=== PATIENT | male | born 1955 | race Caucasian/White ===

== ENCOUNTER 2016-06-23 10:10 | Emergency (ER) | payer MEDICARE, OTHER ==
[2016-06-23] MEDS ORDERED: MORPHINE SULFATE 5 MG/ML PFS IVP ONE (10:46)
[2016-06-23] MEDS ORDERED: ONDANSETRON HCL IV 4 MG/2 ML VIAL IVP ONE (10:46)
--- NOTE | 2016-06-23 10:51 | Emergency Department Record ---
History of Present Illness - General Chief Complaint: Hypertension Stated Complaint: HIGH BP AND LOWER RT SIDE PAIN Time Seen by Provider: 06/23/16 10:45 Source: Patient Mode of Arrival: Ambulatory Limitations: No limitations - History of Present Illness Initial Comments: 60 yo male presents to ED with a CC of RLQ abdominal pain symptoms progressively worsening for the past 5-6 days. Patient denies fevers, chills, nausea, or vomiting symptoms but does report chronic diarrhea related to colitis. Patient is s/p kemar and hernia repair on the right. Patient also reports a history of HTN, CAD, and DM. MD Complaint: Other Onset/Timin -: Days(s) Timing: Unsure Description: Other History of Same: No History of Trauma: No Severity: Moderate Improves With: Nothing Worsens With: Nothing Associated Symptoms: Denies other symptoms - Wes Coma Scale Eye Response: (4) Open spontaneously Motor Response: (6) Obeys commands Verbal Response: (5) Oriented Mcintosh Total: 15 - Related Data Home Medications Medication Instructions Recorded Confirmed Last Taken Aspirin [Aspirin EC] 81 mg PO BID 04/17/14 06/23/16 06/23/16 Atorvastatin Calcium [Lipitor] 40 mg PO DAILY 04/17/14 06/23/16 06/23/16 Glipizide [Glucotrol] 5 mg PO BID 04/17/14 06/23/16 06/23/16 Lisinopril/Hydrochlorothiazide 1 each PO DAILY 04/17/14 04/17/14 06/23/16 [Zestoretic 20-12.5 mg Tablet] Mesalamine [Delzicol] 800 mg PO TID 04/17/14 04/17/14 06/23/16 Metoprolol Tartrate [Lopressor] 25 mg PO BID 04/17/14 04/17/14 06/23/16 Amlodipine Besylate [Norvasc] 5 mg PO DAILY 06/23/16 06/23/16 06/23/16 Citalopram Hydrobromide 06/23/16 Unknown [Citalopram HBr] Citalopram Hydrobromide 20 mg PO DAILY 06/23/16 06/23/16 06/23/16 [Citalopram HBr] Gabapentin [Gabapentin] 200 mg PO BID 06/23/16 06/23/16 06/23/16 Metformin HCl [Metformin HCl ER] 4 tab PO QHS 06/23/16 06/23/16 06/22/16 Omeprazole [Prilosec] 20 mg PO DAILY 06/23/16 06/23/16 06/23/16 Potassium Chloride [Klor-Con M20] 20 meq PO DAILY 06/23/16 06/23/16 06/23/16 Previous Rx's Medication Instructions Recorded Hydrocodone/Acetaminophen [Houghton 1 tab PO Q6H PRN #15 tab 06/23/16 7.5mg/325mg] Allergies Allergy/AdvReac Type Severity Reaction Status Date / Time No Known Drug Allergies Allergy Verified 06/23/16 10:15 Travel Screening - Travel/Exposure Within Last 30 Days Have you traveled within the last 30 days?: No - Travel/Exposure Within Last Year Have you traveled outside the [place] in the last year?: No - Additonal Travel Details Have you been exposed to anyone with a communicable illness?: No - Travel Symptoms Symptom Screening: None Review of Systems Constitutional: Denies: Chills, Fever, Malaise, Night sweats Eyes: Denies: Eye discharge, Eye pain ENT: Denies: Congestion, Ear pain, Epistaxis Respiratory: Denies: Cough, Dyspnea Cardiovascular: Denies: Chest pain, Dyspnea on exertion Endocrine: Denies: Fatigue, Heat or cold intolerance Gastrointestinal: Reports: Abdominal pain, Diarrhea (chronic per patient). Denies: Nausea, Vomiting Genitourinary: Denies: Hematuria, Incontinence, Retention Musculoskeletal: Denies: Arthralgia, Back pain, Gout, Joint swelling Skin: Denies: Bruising, Change in color Neurological: Denies: Abnormal gait, Confusion, Headache, Seizure Psychiatric: Denies: Anxiety Hematological/Lymphatic: Denies: Anemia, Blood Clots Past Medical History - SOCIAL HISTORY Smoking Status: Current every day smoker Alcohol Use: Rare Drug Use: None - RESPIRATORY Hx Respiratory Disorders: No - CARDIOVASCULAR Hx Cardio Disorders: Yes Hx Abnormal EKG: Yes Hx Cardiac Cath: Yes Hx Chest Pain: Yes Hx CHF: Yes (pt thinks) Hx Heart Attack: Yes Hx Hypertension: Yes - NEURO Hx Neuro Disorders: Yes Hx Dizziness: Yes Hx Headaches: Yes Hx TIA: Yes (2008 and 2009) - GI Hx GI Disorders: Yes Comment:: colitis - Hx Genitourinary Disorders: Yes Comment:: stones - ENDOCRINE Hx Endocrine Disorders: Yes Hx Diabetes: Yes - MUSCULOSKELETAL Hx Musculoskeletal Disorders: Yes Hx Arthritis: Yes Hx Back Injury: Yes - PSYCH Hx Psych Problems: Yes Hx Depression: Yes - HEMATOLOGY/ONCOLOGY Hx Hematology/Oncology Disorders: Yes Hx Cancer: Yes (stomach cancer) Hx Chemotherapy: Yes Hx Radiation Therapy: Yes Family Medical History Any Significant Family History?: Yes Hx Alcohol Use: Brother/Sister Hx Anxiety: Brother/Sister Hx Cancer: Father, Mother Hx Dementia: Grandparents Hx Depression: Brother/Sister Hx Diabetes: Father, Mother Hx Heart Disease: Grandparents Physical Exam - General General Appearance: Alert, Oriented x3, Cooperative, Moderate distress Limitations: No limitations - Head Head exam: Atraumatic, Normocephalic, Normal inspection Head exam detail: negative: Abrasion, Contusion, Randall's sign, General tenderness, Hematoma, Laceration - Eye Eye exam: Normal appearance. negative: Conjunctival injection, Periorbital swelling, Periorbital tenderness, Scleral icterus - ENT Ear exam: negative: Auricular hematoma, Auricular trauma Nasal Exam: negative: Active bleeding, Discharge, Dried blood, Foreign body Mouth exam: negative: Drooling, Laceration, Muffled voice, Tongue elevation - Neck Neck exam: Normal inspection. negative: Meningismus, Tenderness - Respiratory Respiratory exam: Normal lung sounds bilaterally. negative: Respiratory distress, Rhonchi, Stridor, Wheezes - Cardiovascular Cardiovascular Exam: Regular rate, Normal rhythm, Normal heart sounds - GI/Abdominal GI/Abdominal exam: Soft, Tenderness (TTP RLQ on examination, no rebound or guarding present). negative: Pulsatile mass, Rebound, Rigid - Rectal Rectal exam: Deferred - exam: Deferred - Extremities Extremities exam: Normal inspection. negative: Calf tenderness, Pedal edema, Tenderness - Back Back exam: Denies: CVA tenderness (R), CVA tenderness (L) - Neurological Neurological exam: Alert, Normal gait, Oriented X3 - Psychiatric Psychiatric exam: Normal affect, Normal mood - Skin Skin exam: Normal color. negative: Abrasion Type of lesion: negative: abrasion Course Vital Signs 06/23/16 06/23/16 10:29 10:40 Temperature 97.8 F Pulse Rate 106 H Pulse Rate [ 98 H Pulse Ox Probe] Respiratory 20 20 Rate Blood Pressure 180/115 Blood Pressure 167/106 [Left] Pulse Ox 97 - Reevaluation(s) Reevaluation #1: 06/23/16 11:23 Labs reviewed, Glucose 209, otherwise labs are grossly unremarkable for an acute process. Awaiting CT imaging for further evaluation. Reevaluation #2: 06/23/16 12:32 CT Abdomen and Pelvis: Hydrocoeles bilaterally, 1.7 cm direct hernia right with omental fat present, otherwise negative. Reevaluation #3: 06/23/16 12:43 Patient was reassessed and updated on all results, reports that his pain symptoms are down to 2/10. Patient appears stable for discharge at this time with referral to [facility] for hernia evaluation as well as analgesia for his pain symptoms. Patient agrees with plan as discussed. Medical Decision Making - Lab Data Result diagrams: 06/23/16 10:55 06/23/16 10:55 Disposition Disposition: Discharge Clinical Impression: Direct hernia Disposition: Home, Self-Care Condition: (2) Stable Instructions: Inguinal Hernia (ED) Additional Instructions: Return to ED if your symptoms worsen or if you have any concerns Houghton as directed. Follow-up in the [facility] this week. Prescriptions: Hydrocodone/Acetaminophen [[place] 7.5mg/325mg] 1 tab PO Q6H PRN #15 tab PRN Reason: Pain - General Referrals: Axel Killian [DOCTOR OF OSTEOPATH] - [facility] [Provider Group] Forms: Patient Portal Access Time of Disposition: 12:46
[2016-06-23] MEDS ORDERED: 0.9 % SODIUM CHLORIDE 1000ML 1,000 ML IV SCH (11:00)
[2016-06-23 11:01] LABS: BASO % 0.4 % (0-6); EOS % 1.2 % (0-6); HEMATOCRIT 46.8 % (42.0-52.0); HEMOGLOBIN 15.7 gm/dl (14.0-18.0); LYMPH % 21.3 % (16-45); MEAN CELL VOLUME 89.1 fl (81-97); MEAN CORPUSCULAR HEMOGLOBIN 29.9 pg (27-33); MEAN CORPUSCULAR HGB CONC 33.5 g/dl (32-36); MEAN PLATELET VOLUME 10.2 fl (7.4-10.4); MONO % 9.1 % (0-9); PLATELET COUNT 253 K/uL (130-400); RED BLOOD COUNT 5.25 M/uL (4.40-5.70); RED CELL DISTRIBUTION WIDTH 12.9 % (11.5-14.5); WHITE BLOOD COUNT W/O DIFF 9.1 K/uL (4.2-12.2)
[2016-06-23 11:14] LABS: ALB/GLOB RATIO 1.8 (1.1-1.8); ALBUMIN 4.5 gm/dL (3.5-5.0); ALKALINE PHOSPHATASE 76 U/L (38-126); ALT/SGPT 33 U/L (21-72); ANION GAP 15.7 (7-16); AST/SGOT 20 U/L (17-59); BILIRUBIN,TOTAL 0.49 mg/dL (0.2-1.3); BLOOD UREA NITROGEN 10 mg/dL (9-20); CARBON DIOXIDE 24.3 mmol/L (22-30); CREATININE 1.1 mg/dL (0.66-1.25); EST GLOMERULAR FILTRATION RATE > 60 ml/min; GLUCOSE,RANDOM 209 mg/dL (70-110); LIPASE 38 U/L (23-300)
[2016-06-23 12:16] LABS: URINE APPEARANCE CLEAR; URINE BILIRUBIN NEGATIVE (NEGATIVE); URINE BLOOD NEGATIVE (NEGATIVE); URINE COLOR YELLOW; URINE KETONE NEGATIVE (NEGATIVE); URINE LEUKOCYTE ESTERASE NEGATIVE (NEGATIVE); URINE NITRITE NEGATIVE (NEGATIVE); URINE PROTEIN NEGATIVE (NEGATIVE); URINE UROBILINOGEN 0.2 E.U./dL (0.20 - 1.00)
--- NOTE | 2016-06-26 14:52 | CT SCAN REPORT ---
EXAM: CT SCAN OF THE ABDOMEN AND PELVIS WITH CONTRAST HISTORY: ACUTE RIGHT SIDED ABDOMINAL PAIN. TECHNIQUE: Serial axial CT scan of the abdomen and pelvis was performed at 3.75 mm intervals from the dome of the diaphragm down to the pubic symphysis following the intravenous administration of 100 ml of Omnipaque 300 contrast. No comparison studies are available. FINDINGS: The lung windows of the lung bases demonstrate no CT evidence of a focal infiltrate or pleural effusion. The visualized heart size and contour is within normal limits. The liver demonstrates mild diffuse fatty infiltration. Otherwise the size and contour of the liver is within normal limits. No suspicious focal hepatic mass lesions are identified. The spleen and bilateral adrenal glands are unremarkable. Punctate calcification of the pancreatic head may represent the result of chronic pancreatitis. Clinical correlation is recommended. The gallbladder is surgically absent. The bilateral kidneys demonstrate no CT evidence of hydronephrosis or hydroureter. A simple cyst is noted within the superior pole of the right kidney. The contour, caliber, and flow within the abdominal aorta is noted within normal limits. Moderate calcified atherosclerotic disease is noted at the distal infrarenal abdominal aorta. There is no CT evidence of retroperitoneal, pelvic, or inguinal lymphadenopathy. The bowel gas pattern is nonspecific and nonobstructive. The appendix is clearly visualized and there is no CT evidence of appendicitis. There is no CT evidence of free intraperitoneal fluid or free intraperitoneal air. The urinary bladder is unremarkable. The prostate is unremarkable. Of note, the patient has prominent bilateral scrotal hydroceles. Bone windows demonstrate no CT evidence of a fracture or dislocation of the visualized osseous structures of the abdomen or pelvis. Postoperative changes of the lower lumbar spine are identified. Within the right inguinal region there is a 1.7 cm direct right inguinal hernia. There is herniated fat within this area. IMPRESSION: 1. LARGE BILATERAL SCROTAL HYDROCELES. 2. 1.7 CM RIGHT DIRECT INGUINAL HERNIA. THERE IS HERNIATED FAT WITHIN THIS REGION. 3. NO CT EVIDENCE OF AN ACUTE INTRAABDOMINAL PROCESS. JOB NUMBER: [id number] MTDD
== END 2016-06-23 13:00 | disposition home or self-care (01) ==
LOC: ER 10:10
DX: K40.90 Unilateral inguinal hernia, without obstruction or gangrene, not specified as recurrent (principal); R10.31 Right lower quadrant pain; I10 Essential (primary) hypertension; I25.10 Atherosclerotic heart disease of native coronary artery without angina pectoris; I25.2 Old myocardial infarction; E11.9 Type 2 diabetes mellitus without complications; F17.200 Nicotine dependence, unspecified, uncomplicated; Z79.84 Long term (current) use of oral hypoglycemic drugs
CPT/HCPCS: 99284 ×2; 96374; 96375; 83690; 85025; 80053; 81003; 74177; Q9967; J2405; J2270; J7030

== ENCOUNTER 2016-07-14 09:18 | Day surgery (SDC) | payer MEDICARE, OTHER ==
[~2016-07-14 09:18] MED LIST: ACETAMINOPHEN 1000MG/100 ML PREMIX IV ONE; CEFAZOLIN 1 Gram 50 ML IVPB ONE; FAMOTIDINE 20MG TABLET PO ONE; MECLIZINE 25 MG TABLET PO ONE; METOCLOPRAMIDE 10 MG TABLET PO ONE
[2016-07-14 09:36] LABS: BASO % 0.3 % (0-6); EOS % 1.2 % (0-6); GRAN % 72.5 % (47-80); HEMATOCRIT 45.4 % (42.0-52.0); HEMOGLOBIN 15.4 gm/dl (14.0-18.0); LYMPH % 17.7 % (16-45); MEAN CELL VOLUME 88.5 fl (81-97); MEAN CORPUSCULAR HGB CONC 33.9 g/dl (32-36); MONO % 8.3 % (0-9); PLATELET COUNT 261 K/uL (130-400); RED BLOOD COUNT 5.13 M/uL (4.40-5.70); RED CELL DISTRIBUTION WIDTH 12.7 % (11.5-14.5); WHITE BLOOD COUNT W/O DIFF 11.8 K/uL (4.2-12.2)
[2016-07-14 09:50] LABS: BLOOD UREA NITROGEN 13 mg/dL (9-20); CREATININE 1.2 mg/dL (0.66-1.25); EST GLOMERULAR FILTRATION RATE > 60 ml/min; GLUCOSE,RANDOM 155 mg/dL (70-110)
[2016-07-14] MEDS ORDERED: BUPIVACAINE 0.25% W/EPI MPF 30ML VIAL IVP ONE (15:12)
[2016-07-14] MEDS ORDERED: HYDROCODONE/APAP 5/325MG TABLET PO ONE (15:12)
[2016-07-14] MEDS ORDERED: HYDROMORPHONE HCL 2 MG/ML VIAL IV ONE (15:12)
[2016-07-14] MEDS ORDERED: EPHEDRINE SULFATE 50 MG/ML ML IV ONE (15:24)
[2016-07-14] MEDS ORDERED: KETOROLAC 30 MG/ML VIAL IVP ONE (15:24)
[2016-07-14] MEDS ORDERED: PROPOFOL 10 MG/ML VIAL IV ONE (15:24)
[2016-07-14] MEDS ORDERED: SUCCINYLCHOLINE 20 MG/ML 10ML IVP ONE (15:24)
[2016-07-14] MEDS ORDERED: LIDOCAINE 2% MDV (20MG/ML) 20ML VIAL IV ONE (15:24)
[2016-07-14] MEDS ORDERED: SEVOFLURANE 250 ML INH ONE (15:24)
[2016-07-14] MEDS ORDERED: ROCURONIUM BROMIDE 50MG/5ML VIAL IV ONE (15:24)
[2016-07-14] MEDS ORDERED: GLYCOPYRROLATE 0.2 MG/ML ML IV ONE (15:24)
[2016-07-14] MEDS ORDERED: NEOSTIGMINE 1 MG/1 ML,10ML VIAL IV ONE (15:24)
--- NOTE | 2016-07-16 15:31 | Operative Note ---
OPERATIVE REPORT DATE OF PROCEDURE: 07/14/2016. SURGEON: Axel Killian D.O. REFERRING PHYSICIAN: Caitlyn Gutierrez M.D. PREOPERATIVE DIAGNOSIS: 1. RECURRENT RIGHT INGUINAL HERNIA. 2. RIGHT HYDROCELE; THE HYDROCELE IS NOT COMMUNICATING. POSTOPERATIVE DIAGNOSIS: 1. RECURRENT RIGHT INGUINAL HERNIA. 2. RIGHT HYDROCELE; THE HYDROCELE IS NOT COMMUNICATING. PROCEDURE: Laparoscopic right inguinal herniorrhaphy with mesh and right hydrocelectomy. INDICATIONS: The patient is a 60-year-old male who presented to the clinic with pain and bulging in the right inguinal region. He also had a moderate- sized hydrocele noted on imaging as well as clinically. He did have some chronic groin pain. I let him know that it is possible that part of this could improve with repair of the hernia and hydrocele, but I could not guarantee complete resolution. He understood this fully. He did have a noncommunicating hydrocele as well. I did recommend approaching the hernia laparoscopically secondary to the recurrent nature and his prior open repair. Therefore consent was signed and questions were answered. DESCRIPTION OF PROCEDURE: He was taken to the operating room and was placed in the supine position. General anesthesia was administered per the Department of Anesthesia. The patient's left arm was tucked to the side and his abdomen was shaved of hair and prepped and draped in the usual fashion. His scrotum was prepped and draped as well. At this time the infraumbilical region was anesthetized with a total of 2.0 mL of 0.25% Sensorcaine with epinephrine. A 2.0-cm infraumbilical incision was made. This was carried down to the anterior rectus fascia. This was incised. Tata clamps were placed and the fascial edges were brought up into the wound. Stay sutures of 0 Vicryl were placed. The posterior rectus sheath was identified and incised. The peritoneal cavity was entered bluntly. At this time a 10 mm blunt Ayo port was placed. Adequate pneumoperitoneum was established. Under direct visualization additional 5.0 mm midclavicular ports were placed on the right and left along the level of the umbilicus. Gentle examination was done. The patient was rotated into steep Trendelenburg position. The patient had a direct recurrence on the right. At this time the peritoneum was scored in an S- shape fashion starting from the anterior superior iliac spine to the medial umbilical region. The peritoneum was swept inferiorly as the loose areolar tissue was swept away. We did reduce the direct sac as well. Zeferino's ligament and the symphysis pubis were exposed medially. At this time a large- sized 3DMax mesh was obtained. This was placed covering the entire myopectineal orifice. The tacking device was used to tack the mesh at the level of the rectus muscle posteriorly on either side of the of the epigastric vessel and up above the triangle of pain. We did place one tack at the level of Zeferino's ligament. At no time were any tacks or heat used in the bowel, the triangle of pain, or the triangle of doom. We did re-peritonealize the patient with the same tacking device. At this time the patient was leveled out, pneumoperitoneum was released, and all ports were removed. The fascia was closed with 0 Vicryl in a figure of eight fashion. The skin and all three ports were closed with 4-0 Vicryl in running subcuticular fashion. Attention was now turned to the right hemiscrotum. At this time an area on the anterior aspect was anesthetized with a total of 4.0 mL of 0.25% Sensorcaine with epinephrine. An incision was made through the skin, through dartos muscle where the testicle and hydrocele were delivered through the incision. A hole was made in the tunica vaginalis draining the hydrocele. The excess tunica was excised with cautery all the way around. The two edges were then marsupialized with 2-0 Vicryl in a running locking fashion. The testicle was returned back to the scrotum. The spermatic cord was straight. There was no twisting or tension. We had excellent blood supply noted. The wound was then closed with 3-0 and 4-0 Vicryl. Dermabond was placed on the skin. He was taken to the recovery room in satisfactory condition. FINDINGS AT THE TIME OF SURGERY: Recurrent right inguinal hernia, direct, and right hydrocele repaired as well. Axel Killian D.O. Date Time JOB NUMBER: [id number] cc: Jo Ann Guevara
== END 2016-07-14 13:40 | disposition home or self-care (01) ==
LOC: SUR 09:18
PROVIDERS: ATTEND Surgery
DX: K40.91 Unilateral inguinal hernia, without obstruction or gangrene, recurrent (principal); N43.2 Other hydrocele; I10 Essential (primary) hypertension; E11.9 Type 2 diabetes mellitus without complications; Z79.84 Long term (current) use of oral hypoglycemic drugs
CPT/HCPCS: 85025; 80048; 49651; 55060; 00840; J1885; J0690; J1170; J0330; J2710

== ENCOUNTER 2016-09-18 13:48 | Day surgery (SDC) | payer MEDICARE, OTHER ==
[2016-09-18] MEDS ORDERED: PROPOFOL 10 MG/ML VIAL IV ONE (14:00)
[2016-09-18] MEDS ORDERED: MIDAZOLAM HCL 2MG/2ML VIAL IV ONE (14:00)
[2016-09-18] MEDS ORDERED: FENTANYL PF 100MCG/2ML VIAL IV ONE (14:00)
[2016-09-18] MEDS ORDERED: LIDOCAINE 2% MDV (20MG/ML) 20ML VIAL IV ONE (14:00)
--- NOTE | 2016-09-20 12:00 | Operative Note ---
DATE OF SURGERY: 09/18/2016 OPERATION: 1. ESOPHAGOGASTRODUODENOSCOPY with biopsy. 2. COLONOSCOPY with biopsy, photo, and polypectomy. PREOPERATIVE DIAGNOSIS: Questionable history of gastric cancer and diarrhea. POSTOPERATIVE DIAGNOSES: 1. Rule out occult celiac sprue. 2. Periampullary duodenal diverticulum. 3. Nonerosive gastritis. 4. 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 5. Rectal polyps x2. 6. Diarrhea, rule out microscopic colitis versus occult inflammatory bowel disease. PROCEDURE: After informed consent was obtained from the patient, he was placed in the left lateral decubitus position in the endoscopy suite, sedated and monitored by the department of anesthesia. Once sedated, a well-lubricated [id number] gastroscope was placed in the posterior oropharynx and under direct visualization passed to the proximal esophagus. The endoscope was advanced through the proximal, mid, and distal esophagus. The GE junction demonstrated proximal migration of the columnar border consistent with short-segment Reza's. No nodules, varices, or masses were seen. The gastric body demonstrated diffuse patchy erythema. No bj ulcers or mass lesions were seen. The duodenal bulb was unremarkable other than the duodenal sweep; there was a large periampullary diverticulum. Random duodenal biopsies were obtained to rule out occult celiac sprue. Gastric biopsies were obtained for H pylori evaluation. J-turn views of the proximal stomach were unremarkable. The endoscope was straightened. The columnar migrating portion of the esophagus was biopsied to rule out short-segment Reza's. No excessive bleeding was noted. The endoscope was removed from the patient. Digital rectal exam was unremarkable. A well-lubricated [id number] colonoscope was inserted into the rectum and advanced to the cecum. Preparation quality was good. The appendiceal orifice, cecum, ascending colon, transverse colon, descending colon, and sigmoid colon were free of inflammatory changes, mass lesions, or polyps. There was some mild patchy erythema throughout the colon but no bj ulcerative changes or aptha were seen. Random biopsies were obtained from the colon as well as the rectosigmoid colon. There were two 4 mm rectal polyps which were removed with a cold snare with minimal bleeding noted. J-turn views of the anorectum were unremarkable. The endoscope was straightened, the rectal ampulla deflated, and the endoscope was removed. RECOMMENDATIONS: We will await the results of tissue histology. The patient is otherwise to resume his medications. Further recommendations will be forthcoming once pathology results are available. As always, thank you for allowing me to participate in the healthcare of your patients. CC: Dr. Caitlyn TOPETE
== END 2016-09-18 16:17 | disposition home or self-care (01) ==
LOC: HOP 13:48
PROVIDERS: ATTEND Internal Medicine Gastroenterology
DX: K51.90 Ulcerative colitis, unspecified, without complications (principal); K22.70 Barrett's esophagus without dysplasia; D12.7 Benign neoplasm of rectosigmoid junction; K62.1 Rectal polyp; K31.89 Other diseases of stomach and duodenum; K29.60 Other gastritis without bleeding
CPT/HCPCS: 88305; 88313; 43239; 45385; 00740; J3010

== ENCOUNTER 2017-10-20 11:59 | Emergency (ER) | payer MEDICARE, OTHER ==
--- NOTE | 2017-10-20 12:43 | Emergency Department Record ---
History of Present Illness - General Chief Complaint: Hypertension Stated Complaint: HIIGH BLOOD PRESSURE,SWELL FEET/LEG, RIGID ABDOMEN Time Seen by Provider: 10/20/17 12:28 Source: Patient Mode of Arrival: Ambulatory Limitations: No limitations - History of Present Illness Initial Comments: pt was sent here from his doctors office because he has had a 15 lb wt gain in 6 weeks and has swelling of his legs and abdomen. he denies cp. he is increasingly sob and has felt weak MD Complaint: Other Onset/Timin -: Days(s) Timing: Gradual onset Description: Other History of Same: No History of Trauma: No Severity: Mild Improves With: Nothing Worsens With: Nothing Associated Symptoms: Shortness of breath - [place] Coma Scale Eye Response: (4) Open spontaneously Motor Response: (6) Obeys commands Verbal Response: (5) Oriented [place] Total: 15 - Related Data Home Medications Medication Instructions Recorded Confirmed Last Taken Albuterol Sulfate [Ventolin Hfa] 1 - 2 puff IH .EVERY 4-6 HOURS PRN 10/20/17 Unknown Insulin Glargine,Hum.rec.anlog 35 units SQ DAILY 10/20/17 10/20/17 Unknown [Lantus Solostar] Sildenafil Citrate 100 mg PO ASDIR 10/20/17 10/20/17 Unknown Sitagliptin Phosphate [Januvia] 50 mg PO DAILY 10/20/17 10/20/17 Unknown Previous Rx's Medication Instructions Recorded Hydrocodone/Acetaminophen [[place] 1 tab PO Q6H PRN #15 tab 06/23/16 7.5mg/325mg] Allergies Allergy/AdvReac Type Severity Reaction Status Date / Time No Known Drug Allergies Allergy Verified 06/23/16 10:15 Travel Screening - Travel/Exposure Within Last 30 Days Have you traveled within the last 30 days?: No Review of Systems Reviewed: No additional complaints except as noted below Constitutional: Reports: As per HPI. Denies: Chills, Fever, Malaise, Night sweats, Weakness, Weight change Eyes: Reports: As per HPI. Denies: Eye discharge, Eye pain, Photophobia, Vision change ENT: Reports: As per HPI. Denies: Congestion, Dental pain, Ear pain, Epistaxis , Hearing loss, Throat pain Respiratory: Reports: As per HPI. Denies: Cough, Dyspnea, Hemoptysis, Stridor, Wheezes Cardiovascular: Reports: As per HPI. Denies: Arrhythmia, Chest pain, Dyspnea on exertion, Edema, Murmurs, Orthopnea, Palpitations, Paroxysmal nocturnal dyspnea, Rheumatic Fever, Syncope Endocrine: Reports: As per HPI. Denies: Fatigue, Heat or cold intolerance, Polydipsia, Polyuria Gastrointestinal: Reports: As per HPI. Denies: Abdominal pain, Constipation, Diarrhea, Hematemesis, Hematochezia, Melena, Nausea, Vomiting Genitourinary: Reports: As per HPI. Denies: Dysuria, Frequency, Hematuria, Incontinence, Retention, Testicular pain, Testicular mass, Urgency Musculoskeletal: Reports: As per HPI. Denies: Arthralgia, Back pain, Gout, Joint swelling, Myalgia, Neck pain Skin: Reports: As per HPI. Denies: Bruising, Change in color, Change in hair/ nails, Lesions, Pruritus, Rash Neurological: Reports: As per HPI. Denies: Abnormal gait, Confusion, Headache, Numbness, Paresthesias, Seizure, Tingling, Tremors, Vertigo, Weakness Psychiatric: Reports: As per HPI. Denies: Anxiety, Auditory hallucinations, Depression, Homicidal thoughts, Suicidal thoughts, Visual hallucinations Hematological/Lymphatic: Reports: As per HPI. Denies: Anemia, Blood Clots, Easy bleeding, Easy bruising, Swollen glands Past Medical History - SOCIAL HISTORY Smoking Status: Former smoker - RESPIRATORY Hx Respiratory Disorders: Yes Hx Bronchitis: Yes Hx Pneumonia: Yes Comment:: has inhaler uses 1-2 x's a week denies asthma - CARDIOVASCULAR Hx Cardio Disorders: Yes Hx Coronary Stent: Yes (2010) - NEURO Hx Neuro Disorders: Yes Hx Dizziness: Yes Hx Headaches: Yes Hx TIA: Yes (2008 and 2009) - GI Hx GI Disorders: Yes Hx Reflux: Yes (on meds) - Hx Genitourinary Disorders: Yes Comment:: stones - ENDOCRINE Hx Endocrine Disorders: Yes Hx Diabetes: Yes Comment:: checks sporadically on new meds recently - MUSCULOSKELETAL Hx Musculoskeletal Disorders: Yes Hx Arthritis: Yes - PSYCH Hx Psych Problems: Yes Hx Anxiety: Yes Hx Depression: Yes - HEMATOLOGY/ONCOLOGY Hx Hematology/Oncology Disorders: Yes Hx Cancer: Yes (stomach cancer) Hx Chemotherapy: Yes Hx Radiation Therapy: Yes Family Medical History Any Significant Family History?: Yes Hx Alcohol Use: Brother/Sister Hx Anxiety: Brother/Sister Hx Cancer: Father, Mother Hx Dementia: Grandparents Hx Depression: Brother/Sister Hx Diabetes: Father, Mother Hx Heart Disease: Grandparents Physical Exam - General General Appearance: Alert, Oriented x3, Cooperative, Mild distress - Head Head exam: Normal inspection - Eye Eye exam: Normal appearance, PERRL, EOMI Pupils: Normal accommodation - ENT ENT exam: Normal exam, Mucous membranes moist, Normal external ear exam, Normal orophraynx Ear exam: Normal external inspection. negative: External canal tenderness Nasal Exam: Normal inspection. negative: Discharge, Sinus tenderness Mouth exam: Normal external inspection, Tongue normal Teeth exam: Normal inspection. negative: Dental caries Throat exam: Normal inspection. negative: Tonsillar erythema, Tonsillar exudate - Neck Neck exam: Normal inspection, Full ROM. negative: Tenderness - Respiratory Respiratory exam: Normal lung sounds bilaterally. negative: Respiratory distress - Cardiovascular Cardiovascular Exam: Regular rate, Normal rhythm, Normal heart sounds - GI/Abdominal GI/Abdominal exam: Soft, Normal bowel sounds, Distended. negative: Tenderness - Rectal Rectal exam: Deferred - exam: Deferred - Extremities Extremities exam: Full ROM, Normal capillary refill, Pedal edema. negative: Tenderness - Back Back exam: Reports: Normal inspection, Full ROM. Denies: Muscle spasm, Rash noted, Tenderness - Neurological Neurological exam: Alert, CN II-XII intact, Normal gait, Oriented X3 - Psychiatric Psychiatric exam: Normal affect, Normal mood - Skin Skin exam: Dry, Intact, Normal color, Warm Course Vital Signs 10/20/17 12:05 Temperature 98.1 F Pulse Rate 75 Respiratory 20 Rate Blood Pressure 208/135 Pulse Ox 98 Medical Decision Making - Lab Data Result diagrams: 10/20/17 12:15 10/20/17 12:15 Disposition Disposition: Discharge Clinical Impression: Urinary retention, Renal insufficiency, Hypokalemia Hypertension Qualifiers: Hypertension type: essential hypertension Qualified Code(s): I10 - Essential ( primary) hypertension Disposition: Home, Self-Care Condition: (1) Good Instructions: Hypertension (ED), Urinary Retention in Men (ED), Impaired Kidney Function (ED) Additional Instructions: follow up with family doctor and with urologist. return sooner if worse Referrals: MARGARET TONY M.D. [MEDICAL DOCTOR] - [facility] [Provider Group] Forms: Patient Portal Access Quality - Quality Measures Quality Measures: N/A - Blood Pressure Screening Does Patient Have Any of the Following: Active Dx of HTN Blood Pressure Classification: Hypertensive Reading Systolic Measurement: 208 Diastolic Measurement: 135 Screening for High Blood Pressure: Patient Exclusion, Hx of HTN [[id number]]
[2017-10-20 12:56] LABS: BASO % 0.4 % (0-6); EOS % 3.6 % (0-6); GRAN % 61.7 % (47-80); HEMATOCRIT 41.3 % (42.0-52.0); HEMOGLOBIN 13.2 gm/dl (14.0-18.0); LYMPH % 21.8 % (16-45); MEAN CELL VOLUME 90.8 fl (81-97); MEAN PLATELET VOLUME 10.4 fl (7.4-10.4); MONO % 12.5 % (0-9); PLATELET COUNT 253 K/uL (130-400); RED BLOOD COUNT 4.55 M/uL (4.40-5.70); RED CELL DISTRIBUTION WIDTH 13.5 % (11.5-14.5); WHITE BLOOD COUNT W/O DIFF 7.8 K/uL (4.2-12.2)
[2017-10-20 13:07] LABS: BLOOD UREA NITROGEN 12 mg/dL (8-23); EST GLOMERULAR FILTRATION RATE 36 mL/min
[2017-10-20 13:08] LABS: TOTAL PROTEIN 6.7 g/dL (6.6-8.7)
[2017-10-20 13:10] LABS: GLUCOSE,RANDOM 143 mg/dL (74-109)
[2017-10-20 13:13] LABS: ALB/GLOB RATIO 1.9 (1.1-1.8); ALBUMIN 4.4 g/dL (4.0-5.0); ALKALINE PHOSPHATASE 91 U/L (40-129); ALT/SGPT 19 U/L (<41); AST/SGOT 21 U/L (10.0-50.0)
[2017-10-20 13:23] LABS: THYROID STIMULATING HORMONE 1.41 uIU/mL (0.270-4.20)
[2017-10-20] MEDS ORDERED: POTASSIUM CHLORIDE 20 MEQ TABLET PO ONE (13:44)
[2017-10-20] MEDS ORDERED: ACETAMINOPHEN 500 MG TABLET PO ONE (15:23)
[2017-10-20] MEDS ORDERED: PROMETHAZINE HCL 12.5 MG in 0.9 % SODIUM CHLORIDE 100ML 100 ML IVPB ONE (15:31)
[2017-10-20 15:45] LABS: URINE APPEARANCE CLEAR; URINE BILIRUBIN NEGATIVE (NEGATIVE); URINE BLOOD NEGATIVE (NEGATIVE); URINE COLOR YELLOW; URINE GLUCOSE (UA) NEGATIVE (NEGATIVE); URINE KETONE NEGATIVE (NEGATIVE); URINE LEUKOCYTE ESTERASE NEGATIVE (NEGATIVE); URINE NITRITE NEGATIVE (NEGATIVE); URINE PROTEIN NEGATIVE (NEGATIVE); URINE UROBILINOGEN 0.2 E.U./dL (0.20 - 1.00)
[2017-10-20] MEDS ORDERED: 0.9 % SODIUM CHLORIDE 1,000 ML BAG IV ONE (16:40)
--- NOTE | 2017-10-21 10:28 | RADIOLOGY REPORT ---
EXAM: CHEST, TWO VIEWS HISTORY: CHEST PAIN. TECHNIQUE: Frontal and lateral views of the chest were obtained. Comparison: Prior chest 04/17/14. FINDINGS: The heart size is normal. Mild elevation of the right hemidiaphragm. Surgical clips right upper quadrant. The lungs are clear. No pneumothorax. IMPRESSION: NO ACUTE CARDIOPULMONARY PROCESS. JOB NUMBER: [id number] MTDD
--- NOTE | 2017-10-21 10:34 | CT SCAN REPORT ---
EXAM: CT OF THE ABDOMEN AND PELVIS HISTORY: ABDOMINAL PAIN. TECHNIQUE: CT of the abdomen and pelvis was obtained without contrast. Lack of contrast limits evaluation of solid visceral organs and bowel. Comparison: Prior CT from 06/23/16. FINDINGS: Limited evaluation of the lung bases shows scarring within the lingula. The osseous structures are grossly intact. There is diffuse fatty infiltrative change to the liver. Status post cholecystectomy. The spleen, adrenal glands, pancreas, and kidneys are unremarkable. Negative for urinary tract calculus or hydronephrosis. There is a moderate sized duodenal diverticulum. Normal appendix. Moderate atheromatous change. Extensive post surgical changes of the lumbar spine. Distended appearance to the urinary bladder. Correlate with any history of outlet obstruction. Fat containing inguinal hernias bilaterally. Enlargement of the prostate. Correlate with PSA levels. No free air or free fluid. IMPRESSION: 1. NEGATIVE FOR URINARY TRACT CALCULUS OR HYDRONEPHROSIS. 2. STATUS POST CHOLECYSTECTOMY. LARGE DUODENAL DIVERTICULUM. 3. STABLE ATHEROMATOUS CHANGES. 4. THERE IS A SOMEWHAT DISTENDED APPEARANCE TO THE URINARY BLADDER. CORRELATE WITH ANY HISTORY OF OUTLET OBSTRUCTION. JOB NUMBER: [id number] [facility]
== END 2017-10-20 17:41 | disposition home or self-care (01) ==
LOC: ER 11:59
DX: N28.9 Disorder of kidney and ureter, unspecified (principal); E87.6 Hypokalemia; R06.02 Shortness of breath; R53.1 Weakness; R33.9 Retention of urine, unspecified; R14.0 Abdominal distension (gaseous); I10 Essential (primary) hypertension; E11.9 Type 2 diabetes mellitus without complications; I25.2 Old myocardial infarction; Z79.4 Long term (current) use of insulin; Z85.028 Personal history of other malignant neoplasm of stomach; Z95.1 Presence of aortocoronary bypass graft; Z87.891 Personal history of nicotine dependence
CPT/HCPCS: 71046; 74176; 80053; 81003; 83880; 84443; 84484; 85025; 93005; 93010; 99284; J7030